=== PATIENT | male | born 1985 | race Two or more races ===

== ENCOUNTER 2019-07-08 08:15 | Emergency (ER) | payer OTHER ==
[2019-07-08 08:35] LABS: APPEARANCE,URINE CLEAR; BILIRUBIN,URINE NEGATIVE (NEGATIVE); COLOR,URINE COLORLESS; GLUCOSE, URINE NEGATIVE (NEGATIVE); KETONES,URINE NEGATIVE (NEGATIVE); PROTEIN,URINE NEGATIVE (NEGATIVE); URINE SPECIFIC GRAVITY 1.004; UROBILINOGEN,URINE NEGATIVE mg/dL (<2.0)
[2019-07-08] MEDS ORDERED: TRAMADOL HCL 50 MG TABLET PO ONE (09:53)
--- NOTE | 2019-07-08 11:27 | ER Document Report ---
ED General - General Chief Complaint: Flank Pain Stated Complaint: FLANK PAIN Time Seen by Provider: 07/08/19 09:45 Primary Care Provider: LOW LOMAX [Primary Care Provider] - Follow up as needed Notes: Patient is a 34-year-old male who comes in with upper right back pain. No dysuria. No sudden onset. Hurts more when he bends over. Denies symptoms like this before. TRAVEL OUTSIDE OF THE [place] IN LAST 30 DAYS: No - HPI Severity: Mild Associated symptoms: None Exacerbated by: Movement Relieved by: Remaining still - Related Data Allergies/Adverse Reactions: No Known Allergies Allergy (Verified 07/08/19 09:21) Past Medical History - Social History Smoking Status: Former Smoker Drug Abuse: Marijuana Family History: Reviewed & Not Pertinent Patient has suicidal ideation: No Patient has homicidal ideation: No - Immunizations Immunizations up to date: Yes Hx Diphtheria, Pertussis, Tetanus Vaccination: No Review of Systems - Review of Systems -: Yes All other systems reviewed and negative Physical Exam - Vital signs Vitals: Temp Pulse Resp BP Pulse Ox 98.1 F 53 L 16 132/50 H 100 07/08/19 08:23 07/08/19 08:23 07/08/19 08:23 07/08/19 08:23 07/08/19 08:23 Interpretation: Normal - General General appearance: Appears well, Alert - HEENT Head: Normocephalic, Atraumatic Eyes: Normal Pupils: PERRL - Respiratory Respiratory status: No respiratory distress Chest status: Nontender Breath sounds: Normal Chest palpation: Normal - Cardiovascular Rhythm: Regular Heart sounds: Normal auscultation Murmur: No - Abdominal Inspection: Normal Distension: No distension Bowel sounds: Normal Tenderness: Nontender Organomegaly: No organomegaly - Back Back: Normal, Tender - Mild tenderness to palpation over right upper back area. No rash. No: CVA tenderness - Extremities General upper extremity: Normal inspection, Nontender, Normal color, Normal ROM, Normal temperature General lower extremity: Normal inspection, Nontender, Normal color, Normal ROM, Normal temperature, Normal weight bearing. No: Giovanna's sign - Neurological Neuro grossly intact: Yes Cognition: Normal Orientation: AAOx4 Cristina Coma Scale Eye Opening: Spontaneous [place] Coma Scale Verbal: Oriented [place] Coma Scale Motor: Obeys Commands [place] Coma Scale Total: 15 Speech: Normal Motor strength normal: LUE, RUE, LLE, RLE Sensory: Normal - Psychological Associated symptoms: Normal affect, Normal mood - Skin Skin Temperature: Warm Skin Moisture: Dry Skin Color: Normal Course - Re-evaluation Re-evalutation: 07/08/19 17:45 No blood or protein in urine. No bacteria. No evidence for pyelonephritis or kidney stone. Patient feels better after tramadol. Will be discharged home with prescription and is to follow-up with his doctor. No neurovascular compromise. Stable vitals. No fever /cough. Return if any worsening or concerning symptoms. Understands agrees with plan. Stable for discharge. - Vital Signs Vital signs: Temp Pulse Resp BP Pulse Ox 97.8 F 93 18 103/73 96 07/08/19 11:43 07/08/19 11:43 07/08/19 11:43 07/08/19 11:43 07/08/19 11:43 Discharge - Discharge Clinical Impression: Back pain Qualifiers: Back pain location: thoracic back pain Chronicity: acute Back pain laterality: right Qualified Code(s): M54.6 - Pain in thoracic spine Condition: Stable Disposition: HOME, SELF-CARE Instructions: Upper Back Strain ([facility]) Additional Instructions: Please follow-up with your doctor when you are able. Please ice the area that is uncomfortable for the first 48 hours and then heat after that. Prescriptions: Tramadol HCl [Ultram] 50 mg PO TIDP PRN #30 tablet PRN Reason: Referrals: [facility] [Primary [facility]] - Follow up as needed
[2019-07-08 11:43] VITALS: BP 103/73
== END 2019-07-08 11:45 | disposition home or self-care (01) ==
LOC: ER 08:15
DX: M54.6 Pain in thoracic spine (principal); F12.10 Cannabis abuse, uncomplicated; Z87.891 Personal history of nicotine dependence
CPT/HCPCS: 81001; 99284